=== PATIENT | female | born 1950 | race Caucasian/White ===

== ENCOUNTER 2016-05-01 07:25 | Emergency (ER) | payer OTHER ==
[~2016-05-01] VITALS: Ht 162.6 cm; Wt 66.0 kg
[2016-05-01] MEDS ORDERED: ARTIFICIAL TEAR15 M1 BOTH EYES (09:58)
[2016-05-01] MEDS ORDERED: CARDIZEM CD,CA240 MG PO (09:58)
[2016-05-01] MEDS ORDERED: DONEPEZIL HCL10 MG PO (09:59)
[2016-05-01] MEDS ORDERED: DIVALPROEX SOD500 M1 PO (09:59)
[2016-05-01] MEDS ORDERED: FLOVENT DISKUS1 DIS2 IH (10:01)
[2016-05-01] MEDS ORDERED: GLIPIZIDE10 MG PO (10:01)
[2016-05-01] MEDS ORDERED: LISINOPRIL20 MG PO (10:01)
[2016-05-01] MEDS ORDERED: METFORMIN HCL500 MG PO (10:02)
[2016-05-01] MEDS ORDERED: ALTOPREV20 MG PO (10:02)
[2016-05-01] MEDS ORDERED: OXYBUTYNIN CHLOR5 MG PO (10:03)
[2016-05-01] MEDS ORDERED: SEROQUEL50 MG PO (10:03)
[2016-05-01] MEDS ORDERED: SERTRALINE HCL50 MG PO (10:03)
[2016-05-01] MEDS ORDERED: LORAZEPAM1 MG PO (10:04)
[2016-05-01] MEDS ORDERED: SEROQUEL XR150 MG PO (10:07)
[2016-05-01] MEDS ORDERED: LAMICTAL25 MG PO (10:08)
[2016-05-01] MEDS ORDERED: QUETIAPINE FUM200 MG PO (10:09)
[2016-05-01] MEDS ORDERED: LEVAQUIN750 MG PO (11:09)
[2016-05-01 11:37] VITALS: BP 145/95
== END 2016-05-01 11:39 ==
LOC: EME → EDBD 07:25 → EME 11:39
DX: S01.01XA Laceration without foreign body of scalp, initial encounter (principal); J18.9 Pneumonia, unspecified organism; R03.0 Elevated blood-pressure reading, without diagnosis of hypertension; W01.198A Fall on same level from slipping, tripping and stumbling with subsequent striking against other object, initial encounter; E11.9 Type 2 diabetes mellitus without complications; F03.90 Unspecified dementia, unspecified severity, without behavioral disturbance, psychotic disturbance, mood disturbance, and anxiety; Z23 Encounter for immunization; Z88.1 Allergy status to other antibiotic agents; Z88.6 Allergy status to analgesic agent; Z88.0 Allergy status to penicillin
CPT/HCPCS: 70450; 71010; 71020; 99281; 99284

== ENCOUNTER 2016-05-02 20:11 | Inpatient (IN) | payer OTHER ==
[~2016-05-02] VITALS: Ht 152.4 cm; Wt 63.0 kg
[~2016-05-02 20:11] MED LIST: ALTOPREV20 MG PO; ARTIFICIAL TEAR15 M1 BOTH EYES; CARDIZEM CD,CA240 MG PO; DIVALPROEX SOD500 M1 PO; DONEPEZIL HCL10 MG PO; FLOVENT DISKUS1 DIS2 IH; GLIPIZIDE10 MG PO; LAMICTAL25 MG PO; LEVAQUIN750 MG PO; LISINOPRIL20 MG PO; LORAZEPAM1 MG PO; METFORMIN HCL500 MG PO; OXYBUTYNIN CHLOR5 MG PO; QUETIAPINE FUM200 MG PO; SEROQUEL XR150 MG PO; SEROQUEL50 MG PO; SERTRALINE HCL50 MG PO
[2016-05-02 21:10] LABS: HEMATOCRIT 37.6 % (36.0-46.0); MCH 29.3 PG (29.0-34.0); MCHC 32.7 G/DL (30.0-36.0); MCV 89.5 FL (83-99); MEAN PLAT.VOLUME 10.9 uM^3 (9.5-12.4); PLATELET COUNT 201 K/uL (156-360); RBC DIS.WIDTH-CV 12.7 % (11.8-14.6); RBC DIS.WIDTH-SD 40.9 % (39-53); WHITE BLOOD COUNT 7.9 K/uL (4.1-10.2)
[2016-05-02 21:17] LABS: CHLORIDE 101 mEq/L (99-109); POTASSIUM 3.9 mEq/L (3.7-5.4); SODIUM 138 mEq/L (136-147)
[2016-05-02 21:20] LABS: GLUCOSE 213 mg/dL (70-99)
[2016-05-02 21:21] LABS: ANION GAP 15 MEQ/L (2-14)
[2016-05-02 21:22] LABS: TOTAL BILIRUBIN 0.1 mg/dL (0.0-1.0)
[2016-05-02 21:23] LABS: ALKALINE PHOSPHATASE 69 IU/L (3-129); GFR ESTIMATE (CALCULATED) 52 mL/min/
[2016-05-02 21:24] LABS: UREA NITROGEN (BUN) 16 mg/dL (9-23)
[2016-05-02 21:44] LABS: ADD MIUA? YES; BILIRUBIN NEGATIVE; BLOOD NEGATIVE; COLOR YELLOW ((YELLOW)); GLUCOSE (STRIP) NEGATIVE; KETONES NEGATIVE; LEUKOCYTES SMALL; NITRITE NEGATIVE; PH, URINE 6.5 (5-8); PROTEIN (STRIP) 30; SPECIFIC GRAVITY 1.013 (1.000-1.030); UROBILINOGEN 0.2 MG/DL (0.2-1.0)
[2016-05-02 21:56] LABS: ADD MEDTOX COMMENT Y; AMPHETAMINE NEGATIVE (500 ng/mL); BARBITURATES NEGATIVE (200 ng/mL); BENZODIAZEPINES PRESUMPTIVE POSITIVE (150 ng/mL); COCAINE NEGATIVE (150 ng/mL); INTERNAL CONTROLS VALID? YES; METHADONE NEGATIVE (200 ng/mL); METHAMPHETAMINE NEGATIVE (500 ng/mL); OPIATES (MORPHINE) NEGATIVE (100 ng/mL); OXYCODONE NEGATIVE (100 ng/mL); PHENCYCLIDINE NEGATIVE (25 ng/mL); PROPOXYPHENE NEGATIVE (300 ng/mL); THC CANNABINOIDS NEGATIVE (50 ng/mL); TRICYCLIC ANTIDEPRESSANTS PRESUMPTIVE POSITIVE (300 ng/mL)
[2016-05-02 22:09] LABS: RED BLOOD CELLS 0-5 /HPF (0-5)
[2016-05-02 22:10] LABS: BACTERIA NONE SEEN; CASTS NONE SEEN /LPF; CRYSTALS NONE SEEN; EPITHELIAL CELLS RARE; MUCUS RARE; UCUL ADDED? NO
[2016-05-02 22:29] LABS: BENZODIAZEPINES QUANT VALUE 0 NG/ML
[2016-05-02 22:31] LABS: BENZODIAZEPINES, URINE SCREEN Negative (200 ng/mL)
[2016-05-03] MEDS ORDERED: ARTIFICIAL TEAR15 M1 BOTH EYES (01:53)
[2016-05-03] MEDS ORDERED: FLONASE16 G1 BOTH NARES (01:54)
[2016-05-03] MEDS ORDERED: GLUCOTROL XL10 MG PO (01:54)
[2016-05-03] MEDS ORDERED: LOVASTATIN20 MG PO (01:56)
[2016-05-03] MEDS ORDERED: OXYBUTYNIN CHLOR5 M1 PO (01:58)
[2016-05-03] MEDS ORDERED: LEVAQUIN750 MG PO (02:06)
[2016-05-03] MEDS ORDERED: IMODIUM A-D2 M2 PO (02:07)
[2016-05-03] MEDS ORDERED: DULCOLAX10 MG PR (02:08)
[2016-05-03] MEDS ORDERED: TYLENOL REGULA325 MG PO (02:08)
[2016-05-03] MEDS ORDERED: ENEMA133 M2 PR (02:10)
[2016-05-03] MEDS ORDERED: CAL-GEST500 MG PO (02:10)
[2016-05-03] MEDS ORDERED: PHILLIPS'400 MG/5 M PO (02:10)
[2016-05-03] MEDS ORDERED: PREPARATION H C51 G1 PR (02:12)
[2016-05-03] MEDS ORDERED: SORE THROAT LO1 EAC3 MM (02:13)
[2016-05-03] MEDS ORDERED: ROBITUSSIN DM118 ML PO (02:13)
[2016-05-03] MEDS ORDERED: GLUCAGEN1 MG IM (02:14)
[2016-05-03] MEDS ORDERED: CLONAZEPAM1 MG PO (02:19)
[2016-05-03 07:17] LABS: POINT-OF-CARE METER ID UU14100415
[2016-05-03 11:08] LABS: POINT-OF-CARE METER ID UU14100415
[2016-05-03 14:50] VITALS: BP 164/91
[2016-05-03 16:01] LABS: POINT-OF-CARE METER ID UU13113725
[2016-05-03 20:02] VITALS: BP 152/78
[2016-05-03 20:12] LABS: POINT-OF-CARE METER ID UU13113725
[2016-05-03 22:59] VITALS: BP 148/62
[2016-05-04 03:39] VITALS: BP 158/70
[2016-05-04 06:47] LABS: EOSINOPHIL (%) 1.2 % (0-5); EOSINOPHIL COUNT 0.1 K/uL (0-0.3); HEMATOCRIT 40.4 % (36.0-46.0); IMMATURE GRANULOCYTE (%) 0.1 % (0.0-0.7); LYMPHOCYTE COUNT 2.9 K/uL (1.0-2.8); MCH 28.5 PG (29.0-34.0); MCHC 31.9 G/DL (30.0-36.0); MCV 89.2 FL (83-99); MEAN PLAT.VOLUME 11.8 uM^3 (9.5-12.4); MONOCYTE (%) 8.7 % (3-12); MONOCYTE COUNT 0.6 K/uL (0-0.8); NEUTROPHIL (%) 50.3 % (45-76); NEUTROPHIL COUNT 3.7 K/uL (1.8-6.4); PLATELET COUNT 218 K/uL (156-360); RBC DIS.WIDTH-CV 12.8 % (11.8-14.6); RBC DIS.WIDTH-SD 41.2 % (39-53); RED BLOOD COUNT 4.53 M/uL (3.80-5.20); WHITE BLOOD COUNT 7.4 K/uL (4.1-10.2)
[2016-05-04 07:30] VITALS: BP 160/92
[2016-05-04 07:51] LABS: ANION GAP 11 MEQ/L (2-14); CHLORIDE 104 MEQ/L (99-109); GFR ESTIMATE (CALCULATED) > 59 mL/min/; GLUCOSE 87 mg/dL (70-99); POTASSIUM 4.2 MEQ/L (3.7-5.4); SAMPLE HEMOLYSIS CHECK 1; SAMPLE ICTERIC CHECK 0; SAMPLE LIPEMIA CHECK 0; SODIUM 139 MEQ/L (136-147); UREA NITROGEN (BUN) 11 mg/dL (9-23)
[2016-05-04 12:00] VITALS: BP 140/84
[2016-05-04 16:00] VITALS: BP 160/90
[2016-05-04 16:36] LABS: POINT-OF-CARE METER ID UU13113725
[2016-05-04 19:30] VITALS: BP 158/88
[2016-05-04 20:40] LABS: POINT-OF-CARE METER ID UU13113725
[2016-05-04 22:03] VITALS: BP 162/90
[2016-05-05 03:30] VITALS: BP 165/88
[2016-05-05 06:11] LABS: POINT-OF-CARE METER ID UU13113725
[2016-05-05 07:53] VITALS: BP 160/90
[2016-05-05 08:57] LABS: INTER. NORMALIZED RATIO 1.1; PROTHROMBIN TIME 11.1 (9.2-11.2)
[2016-05-05 12:30] VITALS: BP 158/82
[2016-05-05 13:00] VITALS: BP 148/84
[2016-05-05 13:35] LABS: POINT-OF-CARE METER ID UU13113725
[2016-05-05 16:57] VITALS: BP 156/84
[2016-05-05 21:11] LABS: POINT-OF-CARE METER ID UU13113725
[2016-05-06] VITALS (7 sets, daily range): BP systolic 126–156; BP diastolic 76–102
[2016-05-06 07:23] LABS: HEMATOCRIT 36.2 % (36.0-46.0); MCH 29.2 PG (29.0-34.0); MCHC 32.9 G/DL (30.0-36.0); MCV 88.9 FL (83-99); MEAN PLAT.VOLUME 10.7 uM^3 (9.5-12.4); PLATELET COUNT 224 K/uL (156-360); RBC DIS.WIDTH-CV 12.7 % (11.8-14.6); RBC DIS.WIDTH-SD 40.4 % (39-53); RED BLOOD COUNT 4.07 M/uL (3.80-5.20); WHITE BLOOD COUNT 5.9 K/uL (4.1-10.2)
[2016-05-06 07:47] LABS: ANION GAP 8 MEQ/L (2-14); CHLORIDE 104 MEQ/L (99-109); GFR ESTIMATE (CALCULATED) > 59 mL/min/; POTASSIUM 3.9 MEQ/L (3.7-5.4); SAMPLE HEMOLYSIS CHECK 0; SAMPLE ICTERIC CHECK 0; SAMPLE LIPEMIA CHECK 0; SODIUM 141 MEQ/L (136-147); UREA NITROGEN (BUN) 11 mg/dL (9-23)
[2016-05-06 07:48] LABS: GLUCOSE 115 mg/dL (70-99)
[2016-05-06 12:06] LABS: POINT-OF-CARE METER ID UU13113725
[2016-05-06 15:52] LABS: POINT-OF-CARE METER ID UU13113725
[2016-05-06 23:09] LABS: QGTB-NIL 0.06 IU/mL (()); TB AG-NIL 0.02 IU/mL (())
[2016-05-07 04:22] VITALS: BP 156/86
[2016-05-07 06:00] LABS: POINT-OF-CARE METER ID UU13113725
[2016-05-07 07:48] VITALS: BP 160/90
[2016-05-07 11:50] LABS: POINT-OF-CARE METER ID UU13113725
[2016-05-07 12:08] VITALS: BP 160/85
[2016-05-07 15:13] VITALS: BP 189/100
[2016-05-07 18:47] VITALS: BP 197/94
[2016-05-07 20:50] LABS: POINT-OF-CARE METER ID UU13113725
[2016-05-07 22:48] VITALS: BP 135/76
[2016-05-08 05:54] LABS: POINT-OF-CARE METER ID UU13113725
[2016-05-08 08:10] VITALS: BP 167/79
[2016-05-08 11:54] LABS: POINT-OF-CARE METER ID UU13113725
[2016-05-08 15:10] VITALS: BP 161/99
[2016-05-08 16:00] LABS: POINT-OF-CARE METER ID UU13113725
[2016-05-08 22:41] VITALS: BP 169/80
[2016-05-09 05:35] LABS: EOSINOPHIL (%) 1.3 % (0-5); EOSINOPHIL COUNT 0.1 K/uL (0-0.3); HEMATOCRIT 38.1 % (36.0-46.0); IMMATURE GRANULOCYTE (%) 0.3 % (0.0-0.7); LYMPHOCYTE COUNT 2.8 K/uL (1.0-2.8); MCH 28.7 PG (29.0-34.0); MCHC 32.8 G/DL (30.0-36.0); MCV 87.4 FL (83-99); MONOCYTE (%) 9.9 % (3-12); MONOCYTE COUNT 0.6 K/uL (0-0.8); NEUTROPHIL (%) 43.2 % (45-76); NEUTROPHIL COUNT 2.7 K/uL (1.8-6.4); PLATELET COUNT 222 K/uL (156-360); RBC DIS.WIDTH-CV 12.6 % (11.8-14.6); RBC DIS.WIDTH-SD 40.5 % (39-53); RED BLOOD COUNT 4.36 M/uL (3.80-5.20); WHITE BLOOD COUNT 6.2 K/uL (4.1-10.2)
[2016-05-09 05:47] LABS: POINT-OF-CARE METER ID UU13113725
[2016-05-09 06:09] LABS: ANION GAP 10 MEQ/L (2-14); CHLORIDE 101 MEQ/L (99-109); GFR ESTIMATE (CALCULATED) > 59 mL/min/; GLUCOSE 100 mg/dL (70-99); POTASSIUM 3.5 MEQ/L (3.7-5.4); SAMPLE HEMOLYSIS CHECK 0; SAMPLE ICTERIC CHECK 0; SAMPLE LIPEMIA CHECK 0; SODIUM 140 MEQ/L (136-147); UREA NITROGEN (BUN) 9 mg/dL (9-23)
[2016-05-09 07:45] VITALS: BP 171/80
[2016-05-09 11:08] LABS: POINT-OF-CARE METER ID UU13113725
[2016-05-09] MEDS ORDERED: LISINOPRIL40 MG PO (11:35)
[2016-05-09] MEDS ORDERED: APRESOLINE25 MG PO (11:35)
[2016-05-09 15:33] VITALS: BP 135/71
== END 2016-05-09 15:58 | DRG 871 ==
LOC: EME → EDBD 20:11 → 5EAST 05-03 01:25 → EDOF 05-03 01:25 → 5EAST 05-03 14:10
PROVIDERS: Emergency Medicine; Hospitalist; Internal Medicine; Radiology Diagnostic Radiology; Student in an Organized Health Care Education/Training Program
PROC: 0B9G3ZX Drainage of Left Upper Lung Lobe, Percutaneous Approach, Diagnostic (ICD-10-PCS; principal; 2016-05-05)
DX: A41.9 Sepsis, unspecified organism (principal); R65.20 Severe sepsis without septic shock; C34.90 Malignant neoplasm of unspecified part of unspecified bronchus or lung; J18.9 Pneumonia, unspecified organism; G93.41 Metabolic encephalopathy; N39.0 Urinary tract infection, site not specified; J44.0 Chronic obstructive pulmonary disease with (acute) lower respiratory infection; F25.0 Schizoaffective disorder, bipolar type; E11.9 Type 2 diabetes mellitus without complications; K21.9 Gastro-esophageal reflux disease without esophagitis; E78.5 Hyperlipidemia, unspecified; F41.9 Anxiety disorder, unspecified; Z87.891 Personal history of nicotine dependence; I10 Essential (primary) hypertension; R32 Unspecified urinary incontinence; F03.90 Unspecified dementia, unspecified severity, without behavioral disturbance, psychotic disturbance, mood disturbance, and anxiety; R91.8 Other nonspecific abnormal finding of lung field; Z88.0 Allergy status to penicillin; Z88.6 Allergy status to analgesic agent
CPT/HCPCS: 70450; 71010; 71020; 71250; 77012; 80048; 80053; 81003; 82948; 83605; 84999; 85025; 85027; 85610; 85730; 86480 90; 87040; 87070; 87075; 87116; 87205; 87206; 87449; 88305; 88341 TC; 88342 TC; 94640; 94799; 97530 GP; 99202; 99281; 99284; 99285; J0692; J1644; J1815; J1956; J2310; J3010; J3370; J7030; J7050

== ENCOUNTER 2016-06-23 19:09 | Inpatient (IN) | payer OTHER ==
[~2016-06-23] VITALS: Ht 160 cm; Wt 57.1 kg
[~2016-06-23 19:09] MED LIST changes: +APRESOLINE25 MG PO; +CAL-GEST500 MG PO; +CLONAZEPAM1 MG PO; +DULCOLAX10 MG PR; +ENEMA133 M2 PR; +FLONASE16 G1 BOTH NARES; +GLUCAGEN1 MG IM; +GLUCOTROL XL10 MG PO; +IMODIUM A-D2 M2 PO; +LISINOPRIL40 MG PO; +LOVASTATIN20 MG PO; +OXYBUTYNIN CHLOR5 M1 PO; +PHILLIPS'400 MG/5 M PO; +PREPARATION H C51 G1 PR; +ROBITUSSIN DM118 ML PO; +SORE THROAT LO1 EAC3 MM; +TYLENOL REGULA325 MG PO
[2016-06-23 20:08] LABS: EOSINOPHIL (%) 0.8 % (0-5); EOSINOPHIL COUNT 0.1 K/uL (0-0.3); HEMATOCRIT 35.7 % (36.0-46.0); IMMATURE GRANULOCYTE (%) 0.5 % (0.0-0.7); INSTRUMENT ABS NEUTROPHIL CT 5.4 K/uL; LYMPHOCYTE COUNT 1.5 K/uL (1.0-2.8); MCH 29.3 PG (29.0-34.0); MCHC 32.2 G/DL (30.0-36.0); MCV 90.8 FL (83-99); MEAN PLAT.VOLUME 10.5 uM^3 (9.5-12.4); MONOCYTE (%) 7.8 % (3-12); MONOCYTE COUNT 0.6 K/uL (0-0.8); NEUTROPHIL (%) 70.7 % (45-76); NEUTROPHIL COUNT 5.4 K/uL (1.8-6.4); PLATELET COUNT 270 K/uL (156-360); RBC DIS.WIDTH-CV 13.1 % (11.8-14.6); RED BLOOD COUNT 3.93 M/uL (3.80-5.20); WHITE BLOOD COUNT 7.7 K/uL (4.1-10.2)
[2016-06-23 20:29] LABS: CHLORIDE 99 mEq/L (99-109); POTASSIUM 4.4 mEq/L (3.7-5.4); SODIUM 136 mEq/L (136-147)
[2016-06-23 20:31] LABS: GLUCOSE 125 mg/dL (70-99)
[2016-06-23 20:32] LABS: ANION GAP 11 MEQ/L (2-14)
[2016-06-23 20:35] LABS: GFR ESTIMATE (CALCULATED) 43 mL/min/; UREA NITROGEN (BUN) 22 mg/dL (9-23)
[2016-06-23 20:38] LABS: TROP-I INTERPRETATION NEGATIVE; TROPONIN-I < 0.01 ng/mL (0.0-0.30)
[2016-06-23 20:59] LABS: ADD MIUA? YES; BILIRUBIN SMALL; BLOOD NEGATIVE; COLOR AMBER ((YELLOW)); GLUCOSE (STRIP) NEGATIVE; KETONES 5; LEUKOCYTES NEGATIVE; NITRITE NEGATIVE; PROTEIN (STRIP) 100; SPECIFIC GRAVITY 1.026 (1.000-1.030); UROBILINOGEN 0.2 MG/DL (0.2-1.0)
[2016-06-23] MEDS ORDERED: LISINOPRIL20 MG PO (21:02)
[2016-06-23] MEDS ORDERED: GLUCOTROL XL2.5 MG PO (21:07)
[2016-06-23] MEDS ORDERED: INCRUSE ELLI62.5 MCG IH (21:08)
[2016-06-23] MEDS ORDERED: BISAC-EVAC10 MG PR (21:11)
[2016-06-23] MEDS ORDERED: CEPACOL SORE T1 EAC9 MM (21:12)
[2016-06-23 21:58] LABS: CASTS PRESENT /LPF; EPITHELIAL CELLS 1+ /HPF; HYALINE CASTS 15-20 /LPF; MUCUS 2+ /LPF
[2016-06-23 21:59] LABS: BACTERIA NONE SEEN /HPF; RED BLOOD CELLS NONE SEEN /HPF (0-5); UCUL ADDED? NO; WHITE BLOOD CELLS 0-5 /HPF (0-5)
[2016-06-24] VITALS (23 sets, daily range): BP systolic 94–187; BP diastolic 51–92
[2016-06-24 00:06] LABS: TROP-I INTERPRETATION NEGATIVE; TROPONIN-I < 0.01 ng/mL (0.0-0.30)
[2016-06-24 01:20] LABS: METH RESISTANT S AUREUS PCR NEGATIVE (NEGATIVE)
[2016-06-24 01:27] LABS: PROBE CHECK PASS; SPECIMEN PROCESSING CONTROL PASS
[2016-06-24 06:20] LABS: HEMATOCRIT 30.9 % (36.0-46.0); MCH 29.7 PG (29.0-34.0); MCV 92.8 FL (83-99); MEAN PLAT.VOLUME 10.8 uM^3 (9.5-12.4); PLATELET COUNT 244 K/uL (156-360); RBC DIS.WIDTH-CV 13.3 % (11.8-14.6); RBC DIS.WIDTH-SD 45.1 % (39-53); RED BLOOD COUNT 3.33 M/uL (3.80-5.20); WHITE BLOOD COUNT 6.4 K/uL (4.1-10.2)
[2016-06-24 06:42] LABS: ANION GAP 6 MEQ/L (2-14); CHLORIDE 108 MEQ/L (99-109); POTASSIUM 4.6 MEQ/L (3.7-5.4); SAMPLE HEMOLYSIS CHECK 0; SAMPLE ICTERIC CHECK 0; SAMPLE LIPEMIA CHECK 0; SODIUM 142 MEQ/L (136-147); UREA NITROGEN (BUN) 14 mg/dL (9-23)
[2016-06-24 06:43] LABS: GFR ESTIMATE (CALCULATED) > 59 mL/min/; GLUCOSE 77 mg/dL (70-99)
[2016-06-24 06:51] LABS: INTER. NORMALIZED RATIO 1.1; PROTHROMBIN TIME 11.7 (9.2-11.2); PTT 28.5 (25-32)
[2016-06-24 07:19] LABS: Estimated Average Glucose 140 mg/dL (70-123); HEMOGLOBIN A1c (GLYCOHEMOGLOB) 6.5 % HGB (Below 5.7)
[2016-06-24 23:01] LABS: TROP-I INTERPRETATION NEGATIVE; TROPONIN-I < 0.01 ng/mL (0.0-0.30)
[2016-06-25] VITALS (11 sets, daily range): BP systolic 132–190; BP diastolic 73–106
[2016-06-25 12:55] LABS: HEMATOCRIT 33.9 % (36.0-46.0)
[2016-06-25 12:57] LABS: MCV 88.3 FL (83-99)
[2016-06-26] VITALS (13 sets, daily range): BP systolic 128–196; BP diastolic 67–101
[2016-06-26 09:41] LABS: ANION GAP 10 MEQ/L (2-14); CHLORIDE 101 MEQ/L (99-109); GFR ESTIMATE (CALCULATED) > 59 mL/min/; SAMPLE HEMOLYSIS CHECK 1; SAMPLE ICTERIC CHECK 0; SAMPLE LIPEMIA CHECK 0; SODIUM 137 MEQ/L (136-147); UREA NITROGEN (BUN) 19 mg/dL (9-23)
[2016-06-26 09:49] LABS: GLUCOSE 114 mg/dL (70-99); POTASSIUM 4.6 MEQ/L (3.7-5.4)
[2016-06-26 10:48] LABS: HEMATOCRIT 35.8 % (36.0-46.0); MCH 30.4 PG (29.0-34.0); MCHC 34.1 G/DL (30.0-36.0); MCV 89.3 FL (83-99); MEAN PLAT.VOLUME 11.4 uM^3 (9.5-12.4); NRBC (%) 0.3 /100 WBC (0-0); PLATELET COUNT 291 K/uL (156-360); RBC DIS.WIDTH-SD 42.3 % (39-53); RED BLOOD COUNT 4.01 M/uL (3.80-5.20); WHITE BLOOD COUNT 6.6 K/uL (4.1-10.2)
[2016-06-26 23:07] LABS: POINT-OF-CARE METER ID UU13113731
[2016-06-27] VITALS (12 sets, daily range): BP systolic 105–169; BP diastolic 53–96
[2016-06-27 05:48] LABS: HEMATOCRIT 33.6 % (36.0-46.0); MCH 29.5 PG (29.0-34.0); MCHC 33.3 G/DL (30.0-36.0); MCV 88.4 FL (83-99); MEAN PLAT.VOLUME 10.8 uM^3 (9.5-12.4); PLATELET COUNT 274 K/uL (156-360); RBC DIS.WIDTH-CV 13.1 % (11.8-14.6); RBC DIS.WIDTH-SD 42.2 % (39-53); WHITE BLOOD COUNT 6.2 K/uL (4.1-10.2)
[2016-06-27 06:12] LABS: ANION GAP 8 MEQ/L (2-14); CHLORIDE 102 MEQ/L (99-109); GFR ESTIMATE (CALCULATED) > 59 mL/min/; GLUCOSE 100 mg/dL (70-99); POTASSIUM 4.2 MEQ/L (3.7-5.4); SAMPLE HEMOLYSIS CHECK 0; SAMPLE ICTERIC CHECK 0; SAMPLE LIPEMIA CHECK 0; SODIUM 138 MEQ/L (136-147); UREA NITROGEN (BUN) 18 mg/dL (9-23)
[2016-06-28] VITALS (7 sets, daily range): BP systolic 135–167; BP diastolic 59–88
[2016-06-28 04:44] LABS: EOSINOPHIL (%) 2.6 % (0-5); EOSINOPHIL COUNT 0.2 K/uL (0-0.3); HEMATOCRIT 34.3 % (36.0-46.0); IMMATURE GRANULOCYTE (%) 0.3 % (0.0-0.7); INSTRUMENT ABS NEUTROPHIL CT 2.7 K/uL; LYMPHOCYTE COUNT 2.8 K/uL (1.0-2.8); MCH 29.4 PG (29.0-34.0); MCHC 33.2 G/DL (30.0-36.0); MCV 88.4 FL (83-99); MEAN PLAT.VOLUME 10.6 uM^3 (9.5-12.4); MONOCYTE COUNT 0.5 K/uL (0-0.8); NEUTROPHIL (%) 43.1 % (45-76); NEUTROPHIL COUNT 2.7 K/uL (1.8-6.4); PLATELET COUNT 302 K/uL (156-360); RBC DIS.WIDTH-SD 42.3 % (39-53); RED BLOOD COUNT 3.88 M/uL (3.80-5.20); WHITE BLOOD COUNT 6.2 K/uL (4.1-10.2)
[2016-06-28 05:00] LABS: CHLORIDE 104 mEq/L (99-109); POTASSIUM 4.4 mEq/L (3.7-5.4); SODIUM 140 mEq/L (136-147)
[2016-06-28 05:03] LABS: GLUCOSE 100 mg/dL (70-99)
[2016-06-28 05:04] LABS: ANION GAP 9 MEQ/L (2-14)
[2016-06-28 05:05] LABS: TOTAL BILIRUBIN 0.2 mg/dL (0.0-1.0)
[2016-06-28 05:06] LABS: ALKALINE PHOSPHATASE 62 IU/L (3-129); GFR ESTIMATE (CALCULATED) > 59 mL/min/
[2016-06-28 05:07] LABS: UREA NITROGEN (BUN) 20 mg/dL (9-23)
[2016-06-29 06:47] LABS: HEMATOCRIT 33.4 % (36.0-46.0); MCH 29.5 PG (29.0-34.0); MCHC 32.9 G/DL (30.0-36.0); MCV 89.5 FL (83-99); MEAN PLAT.VOLUME 10.4 uM^3 (9.5-12.4); PLATELET COUNT 266 K/uL (156-360); RBC DIS.WIDTH-CV 13.1 % (11.8-14.6); RBC DIS.WIDTH-SD 42.9 % (39-53); RED BLOOD COUNT 3.73 M/uL (3.80-5.20); WHITE BLOOD COUNT 6.3 K/uL (4.1-10.2)
[2016-06-29 07:07] LABS: ANION GAP 8 MEQ/L (2-14); CHLORIDE 104 MEQ/L (99-109); GFR ESTIMATE (CALCULATED) > 59 mL/min/; GLUCOSE 108 mg/dL (70-99); POTASSIUM 4.4 MEQ/L (3.7-5.4); SAMPLE HEMOLYSIS CHECK 0; SAMPLE ICTERIC CHECK 0; SAMPLE LIPEMIA CHECK 0; SODIUM 140 MEQ/L (136-147); UREA NITROGEN (BUN) 19 mg/dL (9-23)
[2016-06-29 07:34] VITALS: BP 173/84
[2016-06-29 10:00] VITALS: BP 150/85
[2016-06-29 15:21] VITALS: BP 144/82
[2016-06-29 20:03] VITALS: BP 161/83
[2016-06-30 00:37] VITALS: BP 168/86
[2016-06-30 08:00] VITALS: BP 137/88
[2016-06-30 11:14] VITALS: BP 139/68
[2016-06-30 15:07] VITALS: BP 137/86
[2016-07-01 00:06] VITALS: BP 178/82
[2016-07-01 05:59] LABS: HEMATOCRIT 33.8 % (36.0-46.0); MCH 28.8 PG (29.0-34.0); MCHC 32.2 G/DL (30.0-36.0); MCV 89.2 FL (83-99); MEAN PLAT.VOLUME 10.8 uM^3 (9.5-12.4); PLATELET COUNT 287 K/uL (156-360); RBC DIS.WIDTH-SD 42.3 % (39-53); RED BLOOD COUNT 3.79 M/uL (3.80-5.20); WHITE BLOOD COUNT 5.8 K/uL (4.1-10.2)
[2016-07-01 06:26] LABS: ANION GAP 9 MEQ/L (2-14); CHLORIDE 102 MEQ/L (99-109); GFR ESTIMATE (CALCULATED) > 59 mL/min/; GLUCOSE 90 mg/dL (70-99); MAGNESIUM 1.8 mg/dl (1.3-2.7); POTASSIUM 4.5 MEQ/L (3.7-5.4); SAMPLE HEMOLYSIS CHECK 0; SAMPLE ICTERIC CHECK 0; SAMPLE LIPEMIA CHECK 0; SODIUM 140 MEQ/L (136-147); UREA NITROGEN (BUN) 20 mg/dL (9-23)
[2016-07-01 07:54] VITALS: BP 161/76
[2016-07-01 23:51] VITALS: BP 156/75
[2016-07-02 06:18] LABS: HEMATOCRIT 33.6 % (36.0-46.0); MCH 29.1 PG (29.0-34.0); MCHC 32.4 G/DL (30.0-36.0); MCV 89.8 FL (83-99); MEAN PLAT.VOLUME 10.7 uM^3 (9.5-12.4); PLATELET COUNT 288 K/uL (156-360); RBC DIS.WIDTH-SD 42.6 % (39-53); RED BLOOD COUNT 3.74 M/uL (3.80-5.20); WHITE BLOOD COUNT 6.4 K/uL (4.1-10.2)
[2016-07-02 06:42] LABS: ANION GAP 8 MEQ/L (2-14); CHLORIDE 103 MEQ/L (99-109); GFR ESTIMATE (CALCULATED) > 59 mL/min/; GLUCOSE 83 mg/dL (70-99); POTASSIUM 4.4 MEQ/L (3.7-5.4); SAMPLE HEMOLYSIS CHECK 0; SAMPLE ICTERIC CHECK 0; SAMPLE LIPEMIA CHECK 0; SODIUM 140 MEQ/L (136-147); UREA NITROGEN (BUN) 19 mg/dL (9-23)
[2016-07-02 07:43] VITALS: BP 155/82
[2016-07-02 15:41] VITALS: BP 142/78
[2016-07-02 23:42] VITALS: BP 136/67
[2016-07-03 05:56] LABS: HEMATOCRIT 33.4 % (36.0-46.0); MCH 29.3 PG (29.0-34.0); MCHC 32.9 G/DL (30.0-36.0); MCV 89.1 FL (83-99); MEAN PLAT.VOLUME 10.4 uM^3 (9.5-12.4); PLATELET COUNT 291 K/uL (156-360); RBC DIS.WIDTH-CV 12.8 % (11.8-14.6); RBC DIS.WIDTH-SD 41.6 % (39-53); RED BLOOD COUNT 3.75 M/uL (3.80-5.20); WHITE BLOOD COUNT 6.1 K/uL (4.1-10.2)
[2016-07-03 06:22] LABS: ANION GAP 9 MEQ/L (2-14); CHLORIDE 103 MEQ/L (99-109); GFR ESTIMATE (CALCULATED) > 59 mL/min/; GLUCOSE 94 mg/dL (70-99); POTASSIUM 4.4 MEQ/L (3.7-5.4); SAMPLE HEMOLYSIS CHECK 0; SAMPLE ICTERIC CHECK 0; SAMPLE LIPEMIA CHECK 0; SODIUM 140 MEQ/L (136-147); UREA NITROGEN (BUN) 20 mg/dL (9-23)
[2016-07-03 07:43] VITALS: BP 139/80
[2016-07-03] MEDS ORDERED: AMLODIPINE BESYL5 MG PO (10:23)
[2016-07-03] MEDS ORDERED: CARDIZEM30 MG PO (10:24)
== END 2016-07-03 15:29 | DRG 83 ==
LOC: EME → EDBD 19:09 → EME 19:09 → EDOF 23:03 → 4WEST 23:03 → 3EAST 06-27 16:37
PROVIDERS: Emergency Medicine; Hospitalist; Internal Medicine; Internal Medicine Critical Care Medicine; Nurse Practitioner Family
DX: S06.5X9A Traumatic subdural hemorrhage with loss of consciousness of unspecified duration, initial encounter (principal); C34.12 Malignant neoplasm of upper lobe, left bronchus or lung; W19.XXXA Unspecified fall, initial encounter; R41.82 Altered mental status, unspecified; R93.0 Abnormal findings on diagnostic imaging of skull and head, not elsewhere classified; I95.9 Hypotension, unspecified; R09.02 Hypoxemia; I10 Essential (primary) hypertension; E11.9 Type 2 diabetes mellitus without complications; E78.5 Hyperlipidemia, unspecified; F03.90 Unspecified dementia, unspecified severity, without behavioral disturbance, psychotic disturbance, mood disturbance, and anxiety; F31.9 Bipolar disorder, unspecified; J45.909 Unspecified asthma, uncomplicated; D72.820 Lymphocytosis (symptomatic); Y92.129 Unspecified place in nursing home as the place of occurrence of the external cause; Z87.891 Personal history of nicotine dependence; Z88.0 Allergy status to penicillin; Z88.5 Allergy status to narcotic agent
CPT/HCPCS: 70450; 70553; 71010; 80048; 80053; 80164; 81003; 82948; 83036; 83605; 83735; 83880; 84443; 84484; 85014; 85018; 85025; 85027; 85610; 85730; 87040; 87086; 87641; 94640; 94640 76; 94799; 97530 GO; 97530 GP; 99202; 99281; 99285; J7030; S0028

== ENCOUNTER 2016-08-19 08:44 | Day surgery (SDC) | payer OTHER ==
[~2016-08-19] VITALS: Ht 170.2 cm; Wt 57.1 kg
[~2016-08-19 08:44] MED LIST changes: +AMLODIPINE BESYL5 MG PO; +BISAC-EVAC10 MG PR; +CARDIZEM30 MG PO; +CEPACOL SORE T1 EAC9 MM; +GLUCOTROL XL2.5 MG PO; +INCRUSE ELLI62.5 MCG IH
[2016-08-19 09:24] LABS: CHLORIDE 102 mEq/L (99-109); INTER. NORMALIZED RATIO 1.1; POTASSIUM 4.4 mEq/L (3.7-5.4); PROTHROMBIN TIME 10.9 (9.2-11.2); SODIUM 141 mEq/L (136-147)
[2016-08-19 09:26] LABS: GLUCOSE 98 mg/dL (70-99)
[2016-08-19 09:27] LABS: ANION GAP 10 MEQ/L (2-14)
[2016-08-19 09:28] LABS: TOTAL BILIRUBIN 0.3 mg/dL (0.0-1.0)
[2016-08-19 09:29] LABS: ALKALINE PHOSPHATASE 67 IU/L (3-129)
[2016-08-19 09:30] LABS: GFR ESTIMATE (CALCULATED) > 59 mL/min/
[2016-08-19 09:31] LABS: UREA NITROGEN (BUN) 17 mg/dL (9-23)
[2016-08-19 09:49] VITALS: BP 171/90
[2016-08-19 10:39] LABS: METH RESISTANT S AUREUS PCR NEGATIVE (NEGATIVE); PROBE CHECK PASS; SPECIMEN PROCESSING CONTROL PASS
[2016-08-19] MEDS ORDERED: COLACE100 MG PO (13:16)
[2016-08-19] MEDS ORDERED: NORCO 5/3251 TABLET PO (13:16)
[2016-08-19 13:30] LABS: POINT-OF-CARE METER ID UU13113675
[2016-08-19 14:25] VITALS: BP 136/82
[2016-08-19 15:08] VITALS: BP 179/85
== END 2016-08-19 15:19 ==
LOC: SDC 08:44
PROVIDERS: Thoracic Surgery (Cardiothoracic Vascular Surgery)
PROC: 07B74ZX Excision of Thorax Lymphatic, Percutaneous Endoscopic Approach, Diagnostic (ICD-10-PCS; principal; 2016-08-19)
DX: C34.12 Malignant neoplasm of upper lobe, left bronchus or lung (principal); I10 Essential (primary) hypertension; J45.909 Unspecified asthma, uncomplicated; I69.21 Cognitive deficits following other nontraumatic intracranial hemorrhage; E11.9 Type 2 diabetes mellitus without complications; F03.90 Unspecified dementia, unspecified severity, without behavioral disturbance, psychotic disturbance, mood disturbance, and anxiety; F17.210 Nicotine dependence, cigarettes, uncomplicated; Z88.0 Allergy status to penicillin
CPT/HCPCS: 80053; 82948; 85610; 86900; 86901; 87641; 88305; J0330; J0360; J1100; J1170; J2405; J2710; J3010

== ENCOUNTER → 2016-08-26 | Outpatient (CLI) | payer OTHER ==
[~2016-08-26] MED LIST changes: +COLACE100 MG PO; +NORCO 5/3251 TABLET PO
== END ==
LOC: EEG 08:59
DX: R94.01 Abnormal electroencephalogram [EEG] (principal)
CPT/HCPCS: 95819

== ENCOUNTER 2016-08-28 08:13 | Inpatient (IN) | payer OTHER ==
[~2016-08-28] VITALS: Ht 160 cm; Wt 59.2 kg
[2016-12-31] MEDS ORDERED: ANTI-DIARRHEA2 MG PO (08:41)
[2016-12-31] MEDS ORDERED: COLACE100 MG PO (08:47)
[2016-12-31] MEDS ORDERED: LAMICTAL25 MG PO (08:49)
[2016-12-31] MEDS ORDERED: SEROQUEL100 MG PO (08:52)
[2017-01-01] VITALS (7 sets, daily range): BP systolic 124–151; BP diastolic 82–97
[2017-01-01 07:05] LABS: POINT-OF-CARE METER ID UU14174212
[2017-01-01 07:51] LABS: PROTHROMBIN TIME 11.4 SEC (10.2-12.9)
[2017-01-01 07:53] LABS: PTT 29.2 SEC (25-37)
[2017-01-01 08:14] LABS: METH RESISTANT S AUREUS PCR NEGATIVE (NEGATIVE)
[2017-01-01 08:15] LABS: PROBE CHECK PASS; SPECIMEN PROCESSING CONTROL PASS
[2017-01-01 12:56] LABS: POINT-OF-CARE METER ID UU13113675; POINT-OF-CARE USER ID 515036437
[2017-01-01 21:00] LABS: METH RESISTANT S AUREUS PCR NEGATIVE (NEGATIVE)
[2017-01-01 21:07] LABS: PROBE CHECK PASS; SPECIMEN PROCESSING CONTROL PASS
[2017-01-02] VITALS (18 sets, daily range): BP systolic 122–196; BP diastolic 70–134
[2017-01-02 06:59] LABS: MCH 29.2 PG (29.0-34.0); MCHC 32.2 G/DL (30.0-36.0); MCV 90.7 FL (83-99); MEAN PLAT.VOLUME 10.6 uM^3 (9.5-12.4); PLATELET COUNT 231 K/uL (156-360); RBC DIS.WIDTH-CV 12.7 % (11.8-14.6); RED BLOOD COUNT 4.52 M/uL (3.80-5.20); WHITE BLOOD COUNT 10.1 K/uL (4.1-10.2)
[2017-01-02 07:26] LABS: ANION GAP 11 MEQ/L (2-14); CHLORIDE 99 MEQ/L (99-109); GFR ESTIMATE (CALCULATED) > 59 mL/min/; GLUCOSE 146 mg/dL (70-99); POTASSIUM 4.8 MEQ/L (3.7-5.4); SAMPLE HEMOLYSIS CHECK 0; SAMPLE ICTERIC CHECK 0; SAMPLE LIPEMIA CHECK 0; SODIUM 139 MEQ/L (136-147); UREA NITROGEN (BUN) 12 mg/dL (9-23)
[2017-01-03] VITALS (11 sets, daily range): BP systolic 117–169; BP diastolic 65–102
[2017-01-03 06:29] LABS: HEMATOCRIT 33.5 % (36.0-46.0); MCH 29.5 PG (29.0-34.0); MCHC 32.8 G/DL (30.0-36.0); MCV 89.8 FL (83-99); MEAN PLAT.VOLUME 11.1 uM^3 (9.5-12.4); PLATELET COUNT 247 K/uL (156-360); RBC DIS.WIDTH-SD 42.5 % (39-53); RED BLOOD COUNT 3.73 M/uL (3.80-5.20); WHITE BLOOD COUNT 9.2 K/uL (4.1-10.2)
[2017-01-03 06:52] LABS: ANION GAP 9 MEQ/L (2-14); CHLORIDE 99 MEQ/L (99-109); GFR ESTIMATE (CALCULATED) > 59 mL/min/; GLUCOSE 152 mg/dL (70-99); POTASSIUM 4.4 MEQ/L (3.7-5.4); SAMPLE HEMOLYSIS CHECK 0; SAMPLE ICTERIC CHECK 0; SAMPLE LIPEMIA CHECK 0; SODIUM 138 MEQ/L (136-147); UREA NITROGEN (BUN) 10 mg/dL (9-23)
[2017-01-04 03:22] VITALS: BP 159/86
[2017-01-04 08:28] VITALS: BP 157/97
[2017-01-04 11:46] VITALS: BP 143/70
[2017-01-04 15:33] VITALS: BP 152/95
[2017-01-04 19:22] VITALS: BP 176/89
[2017-01-04 23:25] VITALS: BP 122/63
[2017-01-05] VITALS (18 sets, daily range): BP systolic 118–170; BP diastolic 64–143
[2017-01-05 06:11] LABS: CARBON DIOXIDE (BICARBONATE) 36.2 MEQ/L (20-31)
[2017-01-05 06:20] LABS: ANION GAP 8 MEQ/L (2-14); CHLORIDE 104 MEQ/L (99-109); GFR ESTIMATE (CALCULATED) > 59 mL/min/; GLUCOSE 119 mg/dL (70-99); POTASSIUM 4.6 MEQ/L (3.7-5.4); SAMPLE HEMOLYSIS CHECK 1; SAMPLE ICTERIC CHECK 0; SAMPLE LIPEMIA CHECK 0; SODIUM 143 MEQ/L (136-147); UREA NITROGEN (BUN) 16 mg/dL (9-23)
[2017-01-05 07:24] LABS: EOSINOPHIL (%) 0.1 % (0-5); HEMATOCRIT 32.4 % (36.0-46.0); IMMATURE GRANULOCYTE (%) 0.3 % (0.0-0.7); INSTRUMENT ABS NEUTROPHIL CT 7.5 K/uL; LYMPHOCYTE COUNT 1.5 K/uL (1.0-2.8); MCH 30.1 PG (29.0-34.0); MCHC 32.4 G/DL (30.0-36.0); MCV 92.8 FL (83-99); MEAN PLAT.VOLUME 10.5 uM^3 (9.5-12.4); MONOCYTE (%) 7.4 % (3-12); MONOCYTE COUNT 0.7 K/uL (0-0.8); NEUTROPHIL (%) 76.6 % (45-76); NEUTROPHIL COUNT 7.5 K/uL (1.8-6.4); PLATELET COUNT 266 K/uL (156-360); RBC DIS.WIDTH-CV 12.9 % (11.8-14.6); RBC DIS.WIDTH-SD 43.6 % (39-53); RED BLOOD COUNT 3.49 M/uL (3.80-5.20); WHITE BLOOD COUNT 9.8 K/uL (4.1-10.2)
[2017-01-05 07:36] LABS: BASE EXCESS 10.6 mEq/L (-3 to +3); BICARBONATE 35.7 mEq/L (22-26); CARBOXY HGB 1.4 % (0-5); COMMENTS - BLOOD GASES A+C+; DEVICE HHFNC; FI02 100 %; METHEMOGLOBIN 1.3 % (0-1.5); O2 FLOW 30 L/MIN; PCO2 49 mm Hg (35-45); PO2 92 mm Hg (80-100); SITE RR; pH 7.47 (7.35-7.45)
[2017-01-05 08:28] LABS: METH RESISTANT S AUREUS PCR NEGATIVE (NEGATIVE); PROBE CHECK PASS; SPECIMEN PROCESSING CONTROL PASS
[2017-01-05 08:54] LABS: HEMATOCRIT 31.9 % (36.0-46.0); MCH 29.7 PG (29.0-34.0); MEAN PLAT.VOLUME 10.6 uM^3 (9.5-12.4); PLATELET COUNT 260 K/uL (156-360); RBC DIS.WIDTH-SD 44.1 % (39-53); RED BLOOD COUNT 3.43 M/uL (3.80-5.20); WHITE BLOOD COUNT 9.4 K/uL (4.1-10.2)
[2017-01-05 09:22] LABS: ANISOCYTOSIS 1+; ATYPICAL LYMPHOCYTE 0.9 %; BAND NEUTROPHILS 24.3 % (0-8.0); EOSINOPHIL ABS CT 0; INSTRUMENT ABS NEUTROPHIL CT 7.3 K/uL; LYMPHOCYTES 13.9 % (15.0-45.0); METAMYELOCYTES 0.9 %; PLAT.SUFFICIENCY ADEQUATE; SEG.NEUTROPHILS 50.4 % (46.0-76.0)
[2017-01-06] VITALS (11 sets, daily range): BP systolic 132–173; BP diastolic 75–105
[2017-01-06 07:36] LABS: EOSINOPHIL (%) 0.2 % (0-5); HEMATOCRIT 29.1 % (36.0-46.0); IMMATURE GRANULOCYTE (%) 0.7 % (0.0-0.7); IMMATURE GRANULOCYTE COUNT 0.1 K/uL; INSTRUMENT ABS NEUTROPHIL CT 8.5 K/uL; LYMPHOCYTE COUNT 1.3 K/uL (1.0-2.8); MCH 29.8 PG (29.0-34.0); MCV 93.3 FL (83-99); MEAN PLAT.VOLUME 10.8 uM^3 (9.5-12.4); MONOCYTE (%) 7.7 % (3-12); MONOCYTE COUNT 0.8 K/uL (0-0.8); NEUTROPHIL (%) 79.1 % (45-76); NEUTROPHIL COUNT 8.5 K/uL (1.8-6.4); NRBC (%) 0.2 /100 WBC (0-0); PLATELET COUNT 276 K/uL (156-360); RBC DIS.WIDTH-CV 13.1 % (11.8-14.6); RBC DIS.WIDTH-SD 44.9 % (39-53); RED BLOOD COUNT 3.12 M/uL (3.80-5.20); WHITE BLOOD COUNT 10.8 K/uL (4.1-10.2)
[2017-01-06 07:44] LABS: ANION GAP 7 MEQ/L (2-14); CHLORIDE 104 MEQ/L (99-109); GFR ESTIMATE (CALCULATED) > 59 mL/min/; GLUCOSE 132 mg/dL (70-99); POTASSIUM 4.1 MEQ/L (3.7-5.4); SAMPLE HEMOLYSIS CHECK 0; SAMPLE ICTERIC CHECK 0; SAMPLE LIPEMIA CHECK 0; SODIUM 143 MEQ/L (136-147); UREA NITROGEN (BUN) 17 mg/dL (9-23)
[2017-01-06 21:54] LABS: POINT-OF-CARE METER ID UU14208751
[2017-01-07] VITALS (9 sets, daily range): BP systolic 116–195; BP diastolic 64–180
[2017-01-07 08:57] LABS: POINT-OF-CARE METER ID UU13113803
[2017-01-07 12:12] LABS: POINT-OF-CARE METER ID UU13113803
[2017-01-07 17:40] LABS: POINT-OF-CARE METER ID UU13113803
[2017-01-07 22:15] LABS: POINT-OF-CARE METER ID UU13113803
[2017-01-08] VITALS: BP 131/61
[2017-01-08 04:00] VITALS: BP 172/65
[2017-01-08 08:00] VITALS: BP 138/81
[2017-01-08 09:35] LABS: POINT-OF-CARE METER ID UU13113731
[2017-01-08 12:00] VITALS: BP 144/99
[2017-01-08 12:40] LABS: POINT-OF-CARE METER ID UU14208751
[2017-01-08 16:00] VITALS: BP 125/67
[2017-01-08] MEDS ORDERED: LOPRESSOR25 MG PO (16:53)
[2017-01-08] MEDS ORDERED: DIGOXIN125 MCG PO (16:53)
[2017-01-08] MEDS ORDERED: ENDOCET 5-3251 EACH PO (16:53)
[2017-01-08] MEDS ORDERED: MUCINEX600 MG PO (16:53)
[2017-01-08 17:06] LABS: POINT-OF-CARE METER ID UU14314082
[2017-01-08 20:00] VITALS: BP 188/111
== END 2017-01-08 21:08 | DRG 163 ==
LOC: 2SOUTH → ENRESERV 12-31 21:29 → CANRESERV 01-01 01:12 → ENRESERV 01-01 01:12 → 4WEST 01-01 06:32 → 2SOUTH 01-01 06:32 → ENRESERV 01-01 19:06 → 4WEST 01-01 19:32 → ENRESERV 01-03 19:05 → 4EAST 01-03 20:29 → ENRESERV 01-05 06:28 → 4WEST 01-05 06:33
PROVIDERS: Hospitalist; Internal Medicine Critical Care Medicine; Obstetrics & Gynecology; Thoracic Surgery (Cardiothoracic Vascular Surgery)
DX: C34.12 Malignant neoplasm of upper lobe, left bronchus or lung (principal); J95.821 Acute postprocedural respiratory failure; J95.89 Other postprocedural complications and disorders of respiratory system, not elsewhere classified; J98.11 Atelectasis; Y83.6 Removal of other organ (partial) (total) as the cause of abnormal reaction of the patient, or of later complication, without mention of misadventure at the time of the procedure; J44.9 Chronic obstructive pulmonary disease, unspecified; I69.21 Cognitive deficits following other nontraumatic intracranial hemorrhage; E11.9 Type 2 diabetes mellitus without complications; F01.51 Vascular dementia, unspecified severity, with behavioral disturbance; I10 Essential (primary) hypertension; E78.5 Hyperlipidemia, unspecified; R32 Unspecified urinary incontinence; F25.9 Schizoaffective disorder, unspecified; F31.9 Bipolar disorder, unspecified; Z87.891 Personal history of nicotine dependence; Z86.010 Personal history of colon polyps; Z88.0 Allergy status to penicillin
CPT/HCPCS: 36600; 71010; 80048; 80162; 82803; 82948; 83605; 85025; 85025 91; 85027; 85610; 85730; 86850; 86900; 86901; 86920; 87070; 87205; 87493; 87641; 88300; 88305; 88309; 88313; 90686; 92610 GN; 93005; 94640; 94640 76; 94667; 94668; 94760; 94799; 97530 GO; 97530 GP; 99202; J0330; J0360; J0690; J1100; J1160; J1170; J1630; J1644; J1815; J1885; J1940; J1956; J2250; J2270; J2405; J3010; J3370; J3475; J7050; J7120

== ENCOUNTER → 2016-09-29 | Outpatient (CLI) | payer OTHER | LOC: RAD 08:30 | DX: G31.9 Degenerative disease of nervous system, unspecified (principal); R90.82 White matter disease, unspecified; R59.0 Localized enlarged lymph nodes; I70.0 Atherosclerosis of aorta; I05.9 Rheumatic mitral valve disease, unspecified; R16.0 Hepatomegaly, not elsewhere classified; M47.9 Spondylosis, unspecified; Z90.49 Acquired absence of other specified parts of digestive tract; C34.32 Malignant neoplasm of lower lobe, left bronchus or lung | CPT/HCPCS: 70450; 71260 ==

== ENCOUNTER → 2016-11-13 | Outpatient (CLI) | payer OTHER | LOC: EKG 12:46 | DX: I10 Essential (primary) hypertension (principal); R94.31 Abnormal electrocardiogram [ECG] [EKG] | CPT/HCPCS: 93306 ==

== ENCOUNTER 2017-01-12 15:13 | Inpatient (IN) | payer OTHER ==
[~2017-01-12] VITALS: Ht 149.9 cm; Wt 54.2 kg
[~2017-01-12 15:13] MED LIST changes: +ANTI-DIARRHEA2 MG PO; +DIGOXIN125 MCG PO; +ENDOCET 5-3251 EACH PO; +LOPRESSOR25 MG PO; +MUCINEX600 MG PO; +SEROQUEL100 MG PO
[2017-01-12 16:56] LABS: EOSINOPHIL (%) 1.2 % (0-5); EOSINOPHIL COUNT 0.1 K/uL (0-0.3); HEMATOCRIT 36.9 % (36.0-46.0); IMMATURE GRANULOCYTE (%) 2.8 % (0.0-0.7); IMMATURE GRANULOCYTE COUNT 0.3 K/uL; INSTRUMENT ABS NEUTROPHIL CT 6.7 K/uL; LYMPHOCYTE COUNT 2.6 K/uL (1.0-2.8); MCH 29.2 PG (29.0-34.0); MCHC 31.7 G/DL (30.0-36.0); MEAN PLAT.VOLUME 9.2 uM^3 (9.5-12.4); MONOCYTE (%) 8.1 % (3-12); MONOCYTE COUNT 0.9 K/uL (0-0.8); NEUTROPHIL (%) 62.9 % (45-76); NEUTROPHIL COUNT 6.7 K/uL (1.8-6.4); NRBC (%) 0.8 /100 WBC (0-0); PLATELET COUNT 498 K/uL (156-360); RBC DIS.WIDTH-CV 13.1 % (11.8-14.6); RBC DIS.WIDTH-SD 43.8 % (39-53); RED BLOOD COUNT 4.01 M/uL (3.80-5.20); WHITE BLOOD COUNT 10.6 K/uL (4.1-10.2)
[2017-01-12 17:04] LABS: CHLORIDE 99 mEq/L (99-109); POTASSIUM 3.5 mEq/L (3.7-5.4); SODIUM 146 mEq/L (136-147)
[2017-01-12 17:06] LABS: GLUCOSE 130 mg/dL (70-99)
[2017-01-12 17:07] LABS: ANION GAP 12 MEQ/L (2-14)
[2017-01-12 17:08] LABS: TOTAL BILIRUBIN 0.2 mg/dL (0.0-1.0)
[2017-01-12 17:09] LABS: ALKALINE PHOSPHATASE 85 IU/L (3-129)
[2017-01-12 17:10] LABS: GFR ESTIMATE (CALCULATED) > 59 mL/min/
[2017-01-12 17:11] LABS: UREA NITROGEN (BUN) 18 mg/dL (9-23)
[2017-01-12 17:16] LABS: TROP-I INTERPRETATION NEGATIVE; TROPONIN-I < 0.01 ng/mL (0.0-0.30)
[2017-01-12 18:33] LABS: ADD MIUA? NO; BILIRUBIN NEGATIVE; BLOOD NEGATIVE; COLOR STRAW ((YELLOW)); GLUCOSE (STRIP) NEGATIVE; KETONES NEGATIVE; LEUKOCYTES NEGATIVE; NITRITE NEGATIVE; PROTEIN (STRIP) NEGATIVE; SPECIFIC GRAVITY 1.009 (1.000-1.030); UROBILINOGEN 0.2 MG/DL (0.2-1.0)
[2017-01-12 18:43] LABS: UCUL ADDED? NO
[2017-01-13 00:14] VITALS: BP 183/79
[2017-01-13] MEDS ORDERED: LASIX20 MG PO (01:51)
[2017-01-13 07:26] VITALS: BP 170/82
[2017-01-13 09:51] LABS: EOSINOPHIL (%) 0.8 % (0-5); EOSINOPHIL COUNT 0.1 K/uL (0-0.3); HEMATOCRIT 33.6 % (36.0-46.0); IMMATURE GRANULOCYTE (%) 2.3 % (0.0-0.7); IMMATURE GRANULOCYTE COUNT 0.2 K/uL; INSTRUMENT ABS NEUTROPHIL CT 6.2 K/uL; MCH 29.2 PG (29.0-34.0); MCHC 31.8 G/DL (30.0-36.0); MCV 91.8 FL (83-99); MEAN PLAT.VOLUME 9.4 uM^3 (9.5-12.4); MONOCYTE (%) 7.7 % (3-12); MONOCYTE COUNT 0.7 K/uL (0-0.8); NEUTROPHIL (%) 66.8 % (45-76); NEUTROPHIL COUNT 6.2 K/uL (1.8-6.4); NRBC (%) 0.4 /100 WBC (0-0); PLATELET COUNT 464 K/uL (156-360); RBC DIS.WIDTH-SD 43.1 % (39-53); RED BLOOD COUNT 3.66 M/uL (3.80-5.20); WHITE BLOOD COUNT 9.2 K/uL (4.1-10.2)
[2017-01-13 10:26] LABS: ANION GAP 8 MEQ/L (2-14); CHLORIDE 97 MEQ/L (99-109); GFR ESTIMATE (CALCULATED) > 59 mL/min/; GLUCOSE 150 mg/dL (70-99); POTASSIUM 3.3 MEQ/L (3.7-5.4); SAMPLE HEMOLYSIS CHECK 0; SAMPLE ICTERIC CHECK 0; SAMPLE LIPEMIA CHECK 0; SODIUM 140 MEQ/L (136-147); UREA NITROGEN (BUN) 15 mg/dL (9-23)
[2017-01-13 11:49] VITALS: BP 147/93
[2017-01-13 15:36] VITALS: BP 158/79
[2017-01-13 23:27] VITALS: BP 179/84
[2017-01-14 07:01] LABS: HEMATOCRIT 38.7 % (36.0-46.0); MCH 29.9 PG (29.0-34.0); MCV 93.3 FL (83-99); MEAN PLAT.VOLUME 9.7 uM^3 (9.5-12.4); NRBC (%) 0.7 /100 WBC (0-0); PLATELET COUNT 590 K/uL (156-360); RBC DIS.WIDTH-CV 13.2 % (11.8-14.6); RBC DIS.WIDTH-SD 44.4 % (39-53); RED BLOOD COUNT 4.15 M/uL (3.80-5.20)
[2017-01-14 07:29] LABS: ANION GAP 12 MEQ/L (2-14); CHLORIDE 101 MEQ/L (99-109); GFR ESTIMATE (CALCULATED) > 59 mL/min/; GLUCOSE 149 mg/dL (70-99); POTASSIUM 5.5 MEQ/L (3.7-5.4); SAMPLE HEMOLYSIS CHECK 1; SAMPLE ICTERIC CHECK 0; SAMPLE LIPEMIA CHECK 0; SODIUM 143 MEQ/L (136-147); UREA NITROGEN (BUN) 15 mg/dL (9-23)
[2017-01-14 08:23] VITALS: BP 150/80
[2017-01-14 16:09] VITALS: BP 152/74
[2017-01-14 23:44] VITALS: BP 142/75
[2017-01-15 07:13] LABS: ANION GAP 10 MEQ/L (2-14); CHLORIDE 103 MEQ/L (99-109); GFR ESTIMATE (CALCULATED) > 59 mL/min/; SAMPLE HEMOLYSIS CHECK 0; SAMPLE ICTERIC CHECK 0; SAMPLE LIPEMIA CHECK 0; SODIUM 145 MEQ/L (136-147); UREA NITROGEN (BUN) 15 mg/dL (9-23)
[2017-01-15 07:17] LABS: GLUCOSE 110 mg/dL (70-99); POTASSIUM 3.8 MEQ/L (3.7-5.4)
[2017-01-15 10:15] VITALS: BP 140/76
== END 2017-01-15 11:30 | DRG 204 ==
LOC: EME 15:13 → 5SOUTH 22:05 → EDOF 22:05 → ENRESERV 22:07 → 5SOUTH 23:15
PROVIDERS: Emergency Medicine; Family Medicine; Hospitalist
DX: R06.09 Other forms of dyspnea (principal); C34.12 Malignant neoplasm of upper lobe, left bronchus or lung; J90 Pleural effusion, not elsewhere classified; F03.91 Unspecified dementia, unspecified severity, with behavioral disturbance; F05 Delirium due to known physiological condition; R09.02 Hypoxemia; E11.9 Type 2 diabetes mellitus without complications; E78.5 Hyperlipidemia, unspecified; E87.5 Hyperkalemia; E87.6 Hypokalemia; F25.9 Schizoaffective disorder, unspecified; F31.9 Bipolar disorder, unspecified; I10 Essential (primary) hypertension; Z90.2 Acquired absence of lung [part of]; Z87.891 Personal history of nicotine dependence; R32 Unspecified urinary incontinence; Z88.0 Allergy status to penicillin; Z88.6 Allergy status to analgesic agent; Z88.5 Allergy status to narcotic agent; Z91.040 Latex allergy status; Z87.01 Personal history of pneumonia (recurrent)
CPT/HCPCS: 36600; 71020; 71250; 80048; 80053; 80200; 81003; 82803; 83605; 83880; 84484; 85025; 85027; 87040; 87070; 87205; 87449; 93005; 99202; 99281; 99284; J0360; J1644; J1956; J2060; J3010; J3260; J7050

== ENCOUNTER → 2017-01-30 | Outpatient (CLI) | payer OTHER ==
[~2017-01-30] MED LIST changes: +LASIX20 MG PO
== END ==
LOC: RAD 13:36
DX: G31.9 Degenerative disease of nervous system, unspecified (principal); I67.9 Cerebrovascular disease, unspecified
CPT/HCPCS: 70450

== ENCOUNTER 2017-06-30 19:23 | Emergency (ER) | payer OTHER ==
[~2017-06-30] VITALS: Ht 165.1 cm; Wt 53.9 kg
[2017-06-30 20:45] VITALS: BP 147/97
== END 2017-06-30 20:45 ==
LOC: EME 19:23
DX: F03.90 Unspecified dementia, unspecified severity, without behavioral disturbance, psychotic disturbance, mood disturbance, and anxiety (principal); I10 Essential (primary) hypertension; E11.9 Type 2 diabetes mellitus without complications; K21.9 Gastro-esophageal reflux disease without esophagitis; J45.909 Unspecified asthma, uncomplicated; J44.9 Chronic obstructive pulmonary disease, unspecified; Z88.6 Allergy status to analgesic agent; Z88.5 Allergy status to narcotic agent; Z88.0 Allergy status to penicillin; Z91.040 Latex allergy status; Z87.891 Personal history of nicotine dependence
CPT/HCPCS: 82948; 99281; 99283

== ENCOUNTER 2017-07-24 12:06 | Inpatient (IN) | payer OTHER ==
[~2017-07-24] VITALS: Ht 157.5 cm; Wt 53.1 kg
[~2017-07-24 12:06] MED LIST changes: +DIVALPROEX SOD125 MG PO; -DIVALPROEX SOD500 M1 PO
[2017-07-24 13:07] LABS: HEMATOCRIT 39.3 % (36.0-46.0); HEMOGLOBIN 13.1 G/DL (11.9-15.5); MCHC 33.3 G/DL (30.0-36.0); MCV 87.1 FL (83-99); PLATELET COUNT 269 K/uL (156-360); RBC DIS.WIDTH-CV 13.5 % (11.8-14.6); RBC DIS.WIDTH-SD 43.3 % (39-53); RED BLOOD COUNT 4.51 M/uL (3.80-5.20); WHITE BLOOD COUNT 9.1 K/uL (4.1-10.2)
[2017-07-24 13:16] LABS: CHLORIDE 99 mEq/L (99-109); POTASSIUM 4.2 mEq/L (3.7-5.4); SODIUM 140 mEq/L (136-147)
[2017-07-24 13:17] LABS: GLUCOSE 166 mg/dL (70-99)
[2017-07-24 13:21] LABS: CREATININE 0.9 mg/dL (0.6-1.3); GFR ESTIMATE (CALCULATED) > 59 mL/min/
[2017-07-24 13:22] LABS: UREA NITROGEN (BUN) 18 mg/dL (9-23)
[2017-07-24 13:32] LABS: TROP-I INTERPRETATION NEGATIVE; TROPONIN-I < 0.01 ng/mL (0.0-0.30)
[2017-07-24] MEDS ORDERED: FLEET ENEMA-AD118 ML PR (20:14)
[2017-07-24 22:36] VITALS: BP 152/80
[2017-07-25] VITALS (7 sets, daily range): BP systolic 120–177; BP diastolic 72–87
[2017-07-25 06:28] LABS: HEMATOCRIT 42.4 % (36.0-46.0); HEMOGLOBIN 13.7 G/DL (11.9-15.5); MCH 28.3 PG (29.0-34.0); MCHC 32.3 G/DL (30.0-36.0); MCV 87.6 FL (83-99); PLATELET COUNT 316 K/uL (156-360); RBC DIS.WIDTH-CV 13.7 % (11.8-14.6); RED BLOOD COUNT 4.84 M/uL (3.80-5.20); WHITE BLOOD COUNT 7.8 K/uL (4.1-10.2)
[2017-07-25 06:49] LABS: CHLORIDE 105 MEQ/L (99-109); CREATININE 0.7 MG/DL (0.6-1.3); GFR ESTIMATE (CALCULATED) > 59 mL/min/; POTASSIUM 4.5 MEQ/L (3.7-5.4); SODIUM 141 MEQ/L (136-147); UREA NITROGEN (BUN) 13 mg/dL (9-23)
[2017-07-25 06:59] LABS: GLUCOSE 113 mg/dL (70-99)
[2017-07-26] VITALS (7 sets, daily range): BP systolic 158–172; BP diastolic 80–105
[2017-07-27 03:00] VITALS: BP 162/89
[2017-07-27 08:05] VITALS: BP 170/94
[2017-07-27 15:37] VITALS: BP 134/84
[2017-07-28 00:29] VITALS: BP 138/69
[2017-07-28 08:09] VITALS: BP 143/85
[2017-07-28 16:07] VITALS: BP 143/75
[2017-07-29 07:22] LABS: HEMATOCRIT 43.3 % (36.0-46.0); HEMOGLOBIN 13.8 G/DL (11.9-15.5); MCH 27.7 PG (29.0-34.0); MCHC 31.9 G/DL (30.0-36.0); MCV 86.9 FL (83-99); PLATELET COUNT 300 K/uL (156-360); RBC DIS.WIDTH-CV 13.6 % (11.8-14.6); RBC DIS.WIDTH-SD 43.3 % (39-53); RED BLOOD COUNT 4.98 M/uL (3.80-5.20); WHITE BLOOD COUNT 5.6 K/uL (4.1-10.2)
[2017-07-29 07:49] VITALS: BP 150/63
[2017-07-29 07:50] LABS: CHLORIDE 99 MEQ/L (99-109); CREATININE 0.7 MG/DL (0.6-1.3); GFR ESTIMATE (CALCULATED) > 59 mL/min/; GLUCOSE 93 mg/dL (70-99); POTASSIUM 4.2 MEQ/L (3.7-5.4); SODIUM 138 MEQ/L (136-147); UREA NITROGEN (BUN) 18 mg/dL (9-23)
[2017-07-29 11:12] VITALS: BP 160/84
[2017-07-29] MEDS ORDERED: AZTREONAM1 GM IM (11:51)
[2017-07-29] MEDS ORDERED: AZTREONAM1 GM IV (13:33)
== END 2017-07-29 14:10 | DRG 194 ==
LOC: EME 12:06 → EDOF 21:21 → 2EAST 21:21 → ENRESERV 21:27 → 2EAST 22:30
PROVIDERS: Hospitalist
DX: J18.9 Pneumonia, unspecified organism (principal); Y95 Nosocomial condition; J40 Bronchitis, not specified as acute or chronic; J90 Pleural effusion, not elsewhere classified; I95.9 Hypotension, unspecified; R00.0 Tachycardia, unspecified; R42 Dizziness and giddiness; I10 Essential (primary) hypertension; E11.9 Type 2 diabetes mellitus without complications; F03.90 Unspecified dementia, unspecified severity, without behavioral disturbance, psychotic disturbance, mood disturbance, and anxiety; F25.9 Schizoaffective disorder, unspecified; F31.9 Bipolar disorder, unspecified; Z85.05 Personal history of malignant neoplasm of liver; Z85.118 Personal history of other malignant neoplasm of bronchus and lung; Z87.891 Personal history of nicotine dependence; Z88.0 Allergy status to penicillin; Z90.2 Acquired absence of lung [part of]
CPT/HCPCS: 36600; 71045; 71046; 71275; 80048; 80202; 82803; 82948; 83605; 84484; 85027; 87040; 87493; 94640; 94640 76; 99281; 99285; J0360; J1644; J1956; J3370; J7030; S0073